=== PATIENT | female | born 1965 | race Caucasian/White ===

== ENCOUNTER → 2016-10-18 | Outpatient (CLI) | payer BC | DX: R06.00 Dyspnea, unspecified (principal) | CPT/HCPCS: J7050; Q9963 ==

== ENCOUNTER → 2016-11-08 | Outpatient (CLI) | payer BC | LOC: HEART 5 14:35 | DX: R06.02 Shortness of breath (principal) | CPT/HCPCS: 94060; 94729 ==

== ENCOUNTER → 2021-02-14 | Outpatient (CLI) | payer OTHER | LOC: KOH-I 10:18 | DX: Z87.891 Personal history of nicotine dependence (principal) | CPT/HCPCS: 71271 ==

== ENCOUNTER → 2022-04-18 | Outpatient (CLI) | payer OTHER | LOC: KOH-I 08:50 | DX: Z87.891 Personal history of nicotine dependence (principal) | CPT/HCPCS: 71271 ==